=== PATIENT | female | born 1945 | race Caucasian/White ===

== ENCOUNTER 2019-04-27 07:55 | Inpatient (IN) | payer MEDICARE, BC ==
[~2019-04-27] VITALS: Ht 170.2 cm; Wt 57.6 kg
--- NOTE | 2019-04-27 08:02 | NUR ---
PT IS A/OX4, BIB [id number] FROM [facility]IVATE RESIDENCE, C/O VERTIGO AND N/V. PT REPORTS DIZZINESS BEGAN AFTER THE EARTHQUAKE ON 04/25/19 AND "HASN'T REALLY GONE AWAY". PT EXPERIENCED APPROXIMATELY 3 EPISODES OF EMESIS. PT IS TACHYCARDIC. PT DENIES C/P, SOB, HEADACHE.
--- NOTE | 2019-04-27 08:05 | NUR ---
JADEN KEMP AT BEDSIDE FOR MSE.
[2019-04-27] MEDS ORDERED: ONDANSETRON 4 MG/2 ML VIAL ONE ×2 (08:22→09:36)
[2019-04-27] MEDS ORDERED: ONDANSETRON 4 MG/2 ML VIAL IV ONE ×2 (08:30→09:30)
[2019-04-27] MEDS ORDERED: IV NORMAL SALINE 1000 ML BAG IV ONE (08:30)
[2019-04-27 08:33] LABS: BASOPHILS % (AUTO) 0.2 % (0.0-2.0); EOSINOPHILS % (AUTO) 0.4 % (0.0-7.0); HEMATOCRIT 40.5 % (31.2-41.9); HEMOGLOBIN 13.9 g/dL (10.9-14.3); LYMPHOCYTES # (AUTO) 0.6 K/uL (20.0-40.0); MEAN CORPUSCULAR HEMOGLOBIN 30.9 uug (24.7-32.8); MEAN CORPUSCULAR HGB CONC 34 g/dL (32.3-35.6); MEAN CORPUSCULAR VOLUME 90.4 fL (75.5-95.3); MONOCYTES # (AUTO) 0.4 K/uL (2.0-10.0); MONOCYTES % (AUTO) 4.2 % (0.0-11.0); NEUTROPHILS # (AUTO) 8.8 K/uL (1.8-8.9); NEUTROPHILS % (AUTO) 89.2 % (38.5-71.5); PLATELET COUNT (AUTO) 197 K/uL (179-408); RED BLOOD CELL COUNT(AUTO) 4.48 MIL/uL (3.63-4.92); WHITE BLOOD COUNT (AUTO) 9.9 K/uL (3.8-11.8)
[2019-04-27 08:40] LABS: CARBON DIOXIDE 24 mmol/L (21-32); CHLORIDE 101 mmol/L (98-107); CREATININE 1.3 mg/dL (0.6-1.3); GLUCOSE 140 mg/dL (74-106); POTASSIUM 3.4 mmol/L (3.5-5.1); UREA NITROGEN, BLOOD 16 mg/dL (7-18)
[2019-04-27 08:52] LABS: ALANINE AMINOTRANSFERASE 17 U/L (14-59); ALKALINE PHOSPHATASE 51 U/L (50-136); ASPARTATE AMINOTRANSFERASE 18 U/L (15-37); BILIRUBIN,DIRECT 0.2 mg/dL (0.0-0.2); BILIRUBIN,TOTAL 1.2 mg/dL (0.2-1.0)
--- NOTE | 2019-04-27 09:10 | NUR ---
PT TAKEN TO RADIOLOGY FOR CT SCAN.
--- NOTE | 2019-04-27 09:20 | NUR ---
PT BACK IN ER FROM RADIOLOGY.
[2019-04-27] MEDS ORDERED: DILTIAZEM HCL 25 MG IV IV ONE (09:30)
[2019-04-27] MEDS ORDERED: DILTIAZEM HCL 25 MG IV ONE (09:36)
[2019-04-27] MEDS ORDERED: MECLIZINE HCL 25 MG TABLET ONE (09:44)
[2019-04-27] MEDS ORDERED: MECLIZINE HCL 25 MG TABLET PO ONE (09:45)
[2019-04-27] MEDS ORDERED: THYR60TA2 PO (09:45)
[2019-04-27] MEDS ORDERED: TRAZ-214 PO (09:45)
--- NOTE | 2019-04-27 09:54 | NUR ---
PAGED EPIC FOR PANEL CALL - AWAITING CALLBACK.
--- NOTE | 2019-04-27 10:34 | NUR ---
ER SPEAKING W/ DR. FENTON ON THE PHONE RE PT'S ADMISSION
--- NOTE | 2019-04-27 11:01 | NUR ---
ADMITTING REPORT GIVEN TO ROSA MARIA LNOG.
--- NOTE | 2019-04-27 11:03 | NUR ---
Pt. admitted to TELE 312, under care of Dr. FENTON. Belongs List completed
--- NOTE | 2019-04-27 11:30 | NUR ---
received patient from ER nurse, patient transferred to bed and vitals recorded. Patient monitoring revealed sinus rhytm, and vital signs within normal limits. No wounds to document, bed in low position, side rails up x2, and oriented patient to call light system and environment.
[2019-04-27 11:35] VITALS: BP 101/45
[2019-04-27] MEDS ORDERED: ONDANSETRON 4 MG/2 ML VIAL IV PRN (13:00)
[2019-04-27] MEDS ORDERED: MAGNESIUM HYDROXIDE 30 ML LIQUID UDC PO PRN (13:00)
[2019-04-27] MEDS ORDERED: ZOLPIDEM 5 MG TABLET PO PRN (13:00)
[2019-04-27] MEDS ORDERED: Z GUARD REMEDY PASTE 57 GM TUBE TOP PRN (13:00)
[2019-04-27] MEDS ORDERED: HYDROCODONE/APAP 5-325MG TABLET PO PRN (13:00)
[2019-04-27] MEDS: IV NS 1000 ML 1,000 ML IV PRN (13:38)
[2019-04-27] MEDS: MECLIZINE HCL 25 MG TABLET PO SCH ×2 (14:16→21:36)
[2019-04-27 15:40] VITALS: BP 107/39
[2019-04-27] MEDS: APIXABAN 5 MG TABLET PO SCH (17:22)
[2019-04-27] MEDS ORDERED: WHEA1POW6 PO (17:50)
[2019-04-27] MEDS ORDERED: METOPROLOL SUCCINATE XL 25 MG TAB.SR.24H PO SCH (18:00)
[2019-04-27] MEDS ORDERED: PSYLLIUM SEED PACKET PO PRN (18:15)
--- NOTE | 2019-04-27 19:02 | NUR ---
Patient was cooperative with care, all needs met. Patient reported continuous vertigo and did not want to get out of bed to perform orthostatic blood pressures. Patient did however get up once to go to restroom but was in need too much to wait for orthostatic blood pressures. patient was safely walked to the restroom and returned back to bed without incident. Patient continues to be sinus rhythm on the monitor.
--- NOTE | 2019-04-27 19:32 | NUR ---
REPORTED CRITICAL TROPONIN LAB TO DR POZO AND DR GEIGER. ORDERS RECEIVED TO REPEAT TROPONIN IN AM.
[2019-04-27] MEDS: ACETAMINOPHEN 325 MG TABLET PO PRN (19:49)
--- NOTE | 2019-04-27 19:55 | NUR ---
PATIENT ALERT ORIENTED, NO SOB NO CHEST PAIN, TELE MONITOR SINUS RHYTHM, SINUS EARLE. ASSISTED WITH TOILETING, PATIENT STATED SHE HAS LESS VERTIGO AT THIS TIME. BP ON THE LOW SIDE BUT ASYMPTOMATIC, CALL LIGHT WITHIN REACH. CONT TO MONITOR.
[2019-04-27 20:03] VITALS: BP 97/37
[2019-04-27] MEDS: TRAZODONE 100 MG TABLET PO SCH (21:35)
[2019-04-28 00:41] VITALS: BP 112/45
[2019-04-28] MEDS: IV NS 1000 ML 1,000 ML IV PRN ×2 (03:30→22:04)
[2019-04-28 04:28] VITALS: BP 106/41
--- NOTE | 2019-04-28 06:24 | NUR ---
PATIENT ALERT ORIENTED, NO SOB NO CHEST PAIN, TELE MONITOR SINUS EARLE AT THIS TIME. PATIENT REPORTED THAT HER DIZZINESS IS SUBSIDING AT THIS TIME. ASSISTED WITH TOILETING. ASSISTED WITH TOILETING. BP LOW BUT ASYMPTOMATIC, CONT TO MONITOR.
[2019-04-28] MEDS: MECLIZINE HCL 25 MG TABLET PO SCH ×3 (06:27→21:00)
[2019-04-28] MEDS: THYROID 60 MG TABLET PO SCH (06:27)
[2019-04-28 06:58] LABS: BASOPHILS % (AUTO) 0.4 % (0.0-2.0); EOSINOPHILS # (AUTO) 0.1 K/uL (0.0-0.7); EOSINOPHILS % (AUTO) 1.8 % (0.0-7.0); HEMATOCRIT 34.4 % (31.2-41.9); HEMOGLOBIN 12.1 g/dL (10.9-14.3); LYMPHOCYTES # (AUTO) 1.2 K/uL (20.0-40.0); LYMPHOCYTES % (AUTO) 18.3 % (20.5-51.5); MEAN CORPUSCULAR HEMOGLOBIN 31.7 uug (24.7-32.8); MEAN CORPUSCULAR HGB CONC 35 g/dL (32.3-35.6); MEAN CORPUSCULAR VOLUME 90.3 fL (75.5-95.3); MONOCYTES # (AUTO) 0.6 K/uL (2.0-10.0); MONOCYTES % (AUTO) 8.9 % (0.0-11.0); NEUTROPHILS # (AUTO) 4.7 K/uL (1.8-8.9); NEUTROPHILS % (AUTO) 70.6 % (38.5-71.5); PLATELET COUNT (AUTO) 165 K/uL (179-408); RED BLOOD CELL COUNT(AUTO) 3.81 MIL/uL (3.63-4.92); WHITE BLOOD COUNT (AUTO) 6.7 K/uL (3.8-11.8)
--- NOTE | 2019-04-28 07:05 | NUR ---
Received report from awake overnight counselor nurse. Patient noted in bed awake, not in distress. Patient states her dizziness is less. Kept bed in low position, side rails up x 2. Will continue to monitor
[2019-04-28 07:07] LABS: CARBON DIOXIDE 30 mmol/L (21-32); CHLORIDE 107 mmol/L (98-107); CHOLESTEROL 155 mg/dL (<200); CREATININE 1.1 mg/dL (0.6-1.3); GLUCOSE 92 mg/dL (74-106); HDL CHOLESTEROL 58 mg/dL (40-60); MAGNESIUM 1.8 mg/dL (1.8-2.4); PHOSPHOROUS 3.4 mg/dL (2.5-4.9); POTASSIUM 4.3 mmol/L (3.5-5.1); TRIGLYCERIDES 63 MG/DL (30-150); UREA NITROGEN, BLOOD 12 mg/dL (7-18)
[2019-04-28 07:29] LABS: THYROID STIMULATING HORMONE 4.145 mIU/mL (0.358-3.740)
[2019-04-28] MEDS: APIXABAN 5 MG TABLET PO SCH ×2 (09:26→18:05)
[2019-04-28 11:33] VITALS: BP 114/61
[2019-04-28 15:43] VITALS: BP 127/50
--- NOTE | 2019-04-28 18:50 | NUR ---
Patient has been cooperative w/ care. Patient is scheduled for CTA coronary artery tomorrow. NPO post midnight. Consents obtained from patient. All needs met
[2019-04-28 20:00] VITALS: BP 125/59
--- NOTE | 2019-04-28 20:22 | NUR ---
Received pt resting in bed. AAO x4. No acute distress noted. Denies pain/ discomfort. Pt stated that she is not feeling any dizziness at this time. Assisted pt to the bathroom, no dizziness reported upon ambulation. Safety measures maintained. Call light and personal belongings within reach. Will continue to monitor.
[2019-04-28] MEDS: TRAZODONE 100 MG TABLET PO SCH (20:47)
[2019-04-29] VITALS (7 sets, daily range): BP systolic 109–149; BP diastolic 40–69
[2019-04-29] MEDS: MECLIZINE HCL 25 MG TABLET PO SCH ×3 (06:00→21:20)
[2019-04-29] MEDS: THYROID 60 MG TABLET PO SCH (06:16)
--- NOTE | 2019-04-29 06:16 | NUR ---
Pt will have CT andio. Consent signed. NPO after midnight maintained. Will continue to monitor.
[2019-04-29] MEDS: APIXABAN 5 MG TABLET PO SCH ×2 (08:31→18:12)
[2019-04-29] MEDS: IV NS 1000 ML 1,000 ML IV PRN (11:53)
[2019-04-29] MEDS ORDERED: MECL-102 PO (12:57)
[2019-04-29] MEDS ORDERED: APIX5TAB PO (12:57)
--- NOTE | 2019-04-29 16:00 | NUR ---
Patient case picker and taken to [facility] for ordered CT Angio vitals stable no c/of pain. Ml to LUE just inserted for procedure. Patient with sensitive veins Received with 18G to LAC removed as reported due to infiltration. . RAC G20 inserted after multiple attempts. ML order received by [employer]. Patient left accompanied by and medical staff. AAOX4. no c/of pain dizziness or sob.
--- NOTE | 2019-04-29 17:45 | NUR ---
At this time patient back from [facility] vitals stable, no c/of pain as reported procedure went well results will be available through system soon. Placed back on telemetry monitoring. IF needed continuity of care will be endorse to incoming shift.
[2019-04-29] MEDS: ACETAMINOPHEN 325 MG TABLET PO PRN (18:10)
--- NOTE | 2019-04-29 19:45 | NUR ---
RECEIVED PATIENT AWAKE IN BED. A/O X4. WAITING FOR CT ANGIO RESULTS. PATIENT IS SCHEDULED FOR DISCHARGE TONIGHT IF CLEARED BY CARDIO. PATIENT IS C/O HEADACHE, STATING PRESSURE LIKE FEELING ON TOP OF HEAD. PT ON TELE SB IN THE 50'S. VS WNL. WILL NOTIFY MD FOR FURTHER ORDERS. CALL LIGHT IN REACH. ALL NEEDS ATTENDED. WILL CONTINUE TO MONITOR AND ASSESS.
--- NOTE | 2019-04-29 20:15 | NUR ---
RECEIVED RESULTS FROM CT ANGIO. DR. MAYBERRY PORT CRANE OPERATOR FOR CARDIO. MD AWARE OF RESULT AND CLEARED PATIENT FROM CARDIO STAND-POINT FOR DISCHARGE. INFORMED MD THAT PATIENT IS NOT FEELING WELL SINCE TEST WAS PERFORMED AND ALSO C/O HEADACHE/HEAD PRESSURE. PATIENT IS ASKING TO BE DISCHARGED IN AM. OK PER CARDIO MD IF OK WITH PRIMARY. WILL F/U. ALL NEEDS ATTENDED. JOURNEYMAN ELECTRICIAN NOTIFIED.
--- NOTE | 2019-04-29 20:20 | NUR ---
DR. MACKENZIE NOTIFIED THAT PATIENT IS CLEARED TO BE DISCHARGED FROM CARDIO STAND-POINT. NOTIFIED ABOUT PATIENT NOT FEELING WELL AND WANTING TO LEAVE IN AM. OK PER DR. MACKENZIE TO BE DISCHARGED IN AM. COMPUTER FORENSICS INVESTIGATOR NOTIFIED. PATIENT VERBALIZED UNDERSTANDING.
--- NOTE | 2019-04-29 20:25 | NUR ---
PATIENT GIVEN NORCO FOR HEADACHE/HEAD PRESSURE. WILL CONTINUE TO MONITOR.
[2019-04-29] MEDS: TRAZODONE 100 MG TABLET PO SCH (21:20)
--- NOTE | 2019-04-29 22:00 | NUR ---
PATIENT AWAKE IN BED. NORCO EFFECTIVE. ALL NEEDS ATTENDED. WILL CONTINUE TO MONITOR AND ASSESS.
[2019-04-30 00:31] VITALS: BP 107/35
[2019-04-30 04:00] VITALS: BP 116/42
--- NOTE | 2019-04-30 04:01 | NUR ---
PATIENT ASLEEP IN BED. ON TELE SB IN THE 40'S. LOWEST HEART RATE NOTED DROPPED 40. PATIENT WOKEN UP. A/O X4. HEART UP TO 55-60. AFTER PATIENT FELL BACK ASLEEP, HEART RATE DROPS BACK TO THE LOW 40'S. AM VITALS TAKEN AND WNL. PATIENT STATED, THAT SINCE SHE HAS BEEN ADMITTED, SHE WAS TOLD THAT WHEN SHE SLEEPS, HER HEART RATE HAS BEEN VERY LOW. ALL NEEDS ATTENDED. WILL CONTINUE TO MONITOR AND ASSESS.
[2019-04-30] MEDS: THYROID 60 MG TABLET PO SCH (06:01)
[2019-04-30] MEDS: MECLIZINE HCL 25 MG TABLET PO SCH (06:01)
--- NOTE | 2019-04-30 07:10 | NUR ---
RECEIVED PATIENT IN BED RESTING WITH NO SOB NOTED AT THIS TIME, PATIENT IS PLEASANT , ALERT AND ORIENTED X4 , AMBULATORY, PROVIDE SAFETY AT ALL TIMES. WILL CONTINUE TREATMENT PLAN.
[2019-04-30] MEDS: APIXABAN 5 MG TABLET PO SCH (08:15)
--- NOTE | 2019-04-30 10:10 | NUR ---
PATIENT DISCHARGE TO HOME VIA PRIVATE CAR WITH , DISCHARGE INSTRUCTION GIVEN AND PRESCRIBE MEDICATION GIVEN WITH EXPLANATION. NO SOB NOTED AT THIS TIME,AND NO C/O PAIN AT THIS TIME. NO HEADACHE OR DIZZINESS NOTED AT THIS TIME. PATIENT STATE SHE IS OK TO BE DISCHARGE. BELONGINGS ACCOUNTED FOR AND SIGNED, MIDLINE AND ID BAND REMOVED. QUESTION AND CONCERNS ADDRESSED.
== END 2019-04-30 10:10 | disposition home or self-care (01) | DRG 281 ==
LOC: ER 07:55 → TELE-TD3 11:05 → TELE3 11:20
PROC: 3E033RZ Introduction of Antiarrhythmic into Peripheral Vein, Percutaneous Approach (ICD-10-PCS; principal; 2019-04-27)
PROC: B2211ZZ Computerized Tomography (CT Scan) of Multiple Coronary Arteries using Low Osmolar Contrast (ICD-10-PCS; 2019-04-29)
DX: I48.91 Unspecified atrial fibrillation (principal); I21.A1 Myocardial infarction type 2; N17.9 Acute kidney failure, unspecified; H81.10 Benign paroxysmal vertigo, unspecified ear; J43.9 Emphysema, unspecified; E03.9 Hypothyroidism, unspecified; E87.6 Hypokalemia; N18.9 Chronic kidney disease, unspecified; G47.00 Insomnia, unspecified; I70.0 Atherosclerosis of aorta; Z87.891 Personal history of nicotine dependence; I44.0 Atrioventricular block, first degree; F41.9 Anxiety disorder, unspecified
CPT/HCPCS: 36415; 70030-TC; 70450; 71045; 83735; 84100; 84443; 85025; 85730; 93005; 93307; 97110; 97112; 97116; 97530; A4663; G0378; J2405; J3490; J7030; J8597